=== PATIENT | female | born 1990 | race Two or more races ===

== ENCOUNTER → 2019-05-14 | Outpatient (CLI) | payer OTHER ==
[2014-10-26 13:27] VITALS: BP 149/92
[2019-05-14 17:07] LABS: BASO % 1 % (0-3); EOS # 0.1 x10^3/uL (0.0-0.7); EOS % 2 % (0-3); HEMATOCRIT 38.7 % (36.0-47.0); HEMOGLOBIN 13.6 g/dL (12.0-15.5); LYMPH # 1.8 x10^3/uL (1.0-4.8); LYMPH % 25 % (24-48); MEAN CORPUSCULAR HEMOGLOBIN 31 pg (25-35); MEAN CORPUSCULAR HGB CONC 35 g/dL (31-37); MEAN CORPUSCULAR VOLUME 89 fL (79-100); MONO # 0.4 x10^3/uL (0.0-1.1); MONO % 5 % (0-9); NEUT % 68 % (31-73); PLATELET COUNT 241 x10^3/uL (140-400); RED BLOOD COUNT 4.35 x10^6/uL (3.50-5.40); RED CELL DISTRIBUTION WIDTH 13.9 % (11.5-14.5); WHITE BLOOD COUNT 7.4 x10^3/uL (4.0-11.0)
[2019-05-14 17:08] LABS: BILIRUBIN,URINE NEGATIVE (NEG); CLARITY,URINE CLEAR; COLOR,URINE YELLOW; NITRITE,URINE NEGATIVE (NEG); PH,URINE 6.5; PROTEIN,URINE NEGATIVE (NEG-TRACE); UROBILINOGEN,URINE 0.2 mg/dL (0.2 mg/dL)
--- NOTE | 2019-05-14 17:10 | RAD ---
OB <14 WKS W/TV History: age and growth Comparison: None. Findings: Multiple transabdominal sonographic images of the pelvis are submitted. Uterus measured 11.4 x 4.5 x 5.5 cm. Endometrium measured about 1 cm in thickness. Left ovary measured 2.9 x 4.9 x 3.6 cm there is a hypoechoic lesion left ovary about 2.5 x 1.8 x 2.6 cm. There is normal low resistance vascularity of the left ovary. Right ovary is not seen. Transvaginal ultrasound: Multiple transvaginal sonographic images of the pelvis are submitted. There is a single intrauterine gestational sac with identifiable yolk sac, pole and cardiac activity not visualized on this exam. Mean sac dimension of 0.59 cm corresponds with 5 weeks 2 days. Adjusted ultrasound age 5 weeks 2 days with estimated delivery date 01/12/2020. LMP age 5 weeks 4 days with estimated delivery date of 01/10/2020. There is a hypoechoic lesion left ovary about 2.4 x 1.8 x 1.4 cm. Left ovary measures 4.3 x 2.3 x 3.3 cm with normal low resistance vascularity. Right ovary measures 4.3 x 1.7 x 1.5 cm with normal low resistance vascularity. Impression: 1. There is a single intrauterine gestational sac with visible yolk sac although pole and cardiac activity not seen at this time. Mean sac dimension corresponds with adjusted ultrasound age of 5 weeks 2 days with estimated delivery date of 01/12/2020. Correlation with quantitative beta hCG values and short-term imaging follow-up if needed is recommended. 2. There is left ovarian cyst up to about 2.4 cm. Electronically signed by: Soy Friedman MD (05/14/2019 5:07 PM) [id number]
[2019-05-14 17:17] LABS: BACTERIA,URINE 0 /HPF (0-FEW); RBC,URINE RARE /HPF (0-2); WBC,URINE 0 /HPF (0-4)
== END | disposition home or self-care (01) ==
LOC: US 16:15
PROVIDERS: ATTEND Obstetrics & Gynecology
DX: O34.81 Maternal care for other abnormalities of pelvic organs, first trimester (principal); N83.202 Unspecified ovarian cyst, left side; Z3A.01 Less than 8 weeks gestation of pregnancy
CPT/HCPCS: 36415; 76801; 76817; 81001; 82947; 84436; 84443; 85025; 86592; 86593; 86703; 86762; 86850; 86900; 86901; 87340

== ENCOUNTER → 2019-08-23 | Outpatient (CLI) | payer OTHER ==
[2014-10-26 13:27] VITALS: BP 149/92
--- NOTE | 2019-08-23 16:10 | RAD ---
EXAM: Obstetrics sonogram. HISTORY: Size and dates. TECHNIQUE: Sonographic imaging of the gravid uterus was performed. COMPARISON: 05/14/2019. FINDINGS: There is a single intrauterine fetus in breech presentation with a normal heart rate of 152 bpm. There is a three-vessel umbilical cord with normal insertion. There is normal breathing motion. There is a normal amniotic fluid index of 14.8 cm. There is anterior placenta without evidence of placenta previa. The stomach, kidneys, bladder, spine, brain, heart, facial profile and extremities are unremarkable. The biparietal diameter is 4.6 cm, corresponding with 19 weeks and 6 days. The head circumference is 16.6 cm, corresponding with 20 weeks and 2 days. The abdominal circumference is 14.2 cm, corresponding with 19 weeks and 4 days. The femoral length is 3.1 cm, corresponding with 19 weeks and 5 days. The estimated gestational age patient combined ultrasound measurements is 19 weeks and 4 days and the estimated weight is 301 g. The estimated due date is 01/13/2020. The cervical length is 4.8 cm. The maternal adnexal regions are unremarkable. IMPRESSION: 1. Single intrauterine fetus in breech presentation with normal heart rate and gestational age based on ultrasound measurements of 19 weeks and 4 days. 2. Slightly limited evaluation of the anatomy due to presentation. The anatomy survey is grossly unremarkable. Electronically signed by: Sonia Reece MD (08/23/2019 4:07 PM) [place] [id number]
== END | disposition home or self-care (01) ==
LOC: US 13:53
PROVIDERS: ATTEND Obstetrics & Gynecology
DX: O32.1XX0 Maternal care for breech presentation, not applicable or unspecified (principal); O26.842 Uterine size-date discrepancy, second trimester; Z3A.19 19 weeks gestation of pregnancy
CPT/HCPCS: 76805

== ENCOUNTER → 2019-11-07 | Outpatient (CLI) | payer OTHER ==
[2014-10-26 13:27] VITALS: BP 149/92
== END ==
LOC: LAB 09:16
PROVIDERS: ATTEND Obstetrics & Gynecology
DX: O09.90 Supervision of high risk pregnancy, unspecified, unspecified trimester (principal); Z3A.00 Weeks of gestation of pregnancy not specified
CPT/HCPCS: 36415; 82947; 82950

== ENCOUNTER 2020-01-08 06:03 | Inpatient (IN) | payer OTHER ==
[~2020-01-08] VITALS: Ht 162.6 cm; Wt 105.2 kg
[2020-01-08] MEDS ORDERED: OXYTOCIN 30 UNIT/500 ML PREMIX 500 ML IV PRN ×3 (06:15→19:00)
[2020-01-08] MEDS ORDERED: CITRIC ACID/SODIUM CITRATE 30 ML SOLUTION. PO PRN (06:15)
[2020-01-08] MEDS ORDERED: BUTORPHANOL 2 MG/ML VIAL. IVP PRN (06:15)
[2020-01-08] MEDS ORDERED: ONDANSETRON PF 4 MG/2 ML VIAL. IVP PRN ×2 (06:15→13:30)
[2020-01-08] MEDS ORDERED: ACETAMINOPHEN 325 MG TABLET. PO PRN ×2 (06:15→19:00)
[2020-01-08] MEDS ORDERED: TERBUTALINE 1 MG/ML VIAL. SQ PRN (06:15)
[2020-01-08] MEDS ORDERED: IBUPROFEN 400 MG TABLET. PO PRN (06:15)
[2020-01-08] MEDS ORDERED: fentaNYL PF VIAL 100 MCG/2 ML VIAL IVP PRN (06:15)
[2020-01-08] MEDS ORDERED: 0.9 % SODIUM CHLORIDE 10 ML DISP.SYRIN. IV PRN ×2 (06:15→19:00)
[2020-01-08] MEDS ORDERED: LIDOCAINE 1% PF 30 ML VIAL. INJ PRN (06:15)
[2020-01-08] MEDS: IV RINGERS,LACTATED 1000ML 1,000 ML IV SCH ×2 (06:54→11:14)
[2020-01-08 07:04] VITALS: BP 149/98
[2020-01-08 07:04] LABS: BASO % 1 % (0-3); EOS # 0.1 x10^3/uL (0.0-0.7); EOS % 2 % (0-3); HEMATOCRIT 37.2 % (36.0-47.0); HEMOGLOBIN 12.3 g/dL (12.0-15.5); LYMPH % 31 % (24-48); MEAN CORPUSCULAR HEMOGLOBIN 28 pg (25-35); MEAN CORPUSCULAR HGB CONC 33 g/dL (31-37); MEAN CORPUSCULAR VOLUME 84 fL (79-100); MONO # 0.3 x10^3/uL (0.0-1.1); MONO % 5 % (0-9); NEUT # 4.1 x10^3/uL (1.8-7.7); NEUT % 62 % (31-73); PLATELET COUNT 206 x10^3/uL (140-400); RED BLOOD COUNT 4.44 x10^6/uL (3.50-5.40); RED CELL DISTRIBUTION WIDTH 16.7 % (11.5-14.5); WHITE BLOOD COUNT 6.6 x10^3/uL (4.0-11.0)
[2020-01-08 11:28] LABS: BILIRUBIN,URINE NEGATIVE (NEG); CLARITY,URINE CLEAR; COLOR,URINE YELLOW; NITRITE,URINE NEGATIVE (NEG); PH,URINE 6.5 (<5.0-8.0); PROTEIN,URINE >=300 mg/dL (NEG-TRACE); UROBILINOGEN,URINE 0.2 mg/dL (0.2 mg/dL)
[2020-01-08 11:36] LABS: BACTERIA,URINE FEW /HPF (0-FEW)
[2020-01-08 11:37] LABS: HYALINE CASTS, URINE FEW /HPF; SQUAMOUS EPITHELIAL CELL,UR MANY /LPF
[2020-01-08] MEDS ORDERED: IV RINGERS,LACTATED 1000ML 1,000 ML IV SCH (13:16)
[2020-01-08] MEDS ORDERED: L&D EPIDURAL SYRINGE 50 ML ONE (13:19)
[2020-01-08] MEDS ORDERED: ROPIVacaine 0.2% PF 10 ML VIAL. ONE ×2 (13:19→14:00)
[2020-01-08] MEDS ORDERED: L&D EPIDURAL SYRINGE 50 ML EPID PRN (13:30)
[2020-01-08] MEDS ORDERED: NALOXONE 0.4 MG/ML VIAL. IV PRN (13:30)
[2020-01-08] MEDS ORDERED: ROPIVacaine 0.2% PF 10 ML VIAL. EPID PRN (13:30)
[2020-01-08] MEDS ORDERED: BUPIVACAINE MPF 0.25% 30 ML VIAL. EPID PRN (13:30)
[2020-01-08] MEDS ORDERED: miSOPROStol 200 MCG TABLET ONE (14:00)
[2020-01-08] MEDS ORDERED: L&D EPIDURAL 50 ML SYRINGE. ONE (14:00)
--- NOTE | 2020-01-08 15:55 | PDOC1 ---
OB - History Hx of Present Care: Good Care Ultrasounds: No ultrasounds Obstetrical Complications: None Medical Complications: None Past Family/Social History * Past Medical, Surgical, Family and Obstetric Histories reviewed from chart. Rubella: Immune RPR/VDRL: Negative GBS Status: Negative HBsAG: Negative OB - Chief Complaint & HPI Date of Admission: Date of Admission: January 08, 2020 at 06:03 Chief Complaint/History : 4 Para: 3 EGA: 39 Reason for admission: induction of labor Admission Nurse Assessment Rev: Yes OB - Admission Exam Physical Exam Vitals: VS - Last 72 Hours, by Label Date Time Temp Pulse Resp B/P (MAP) Pulse Ox O2 Delivery O2 Flow Rate FiO2 01/08/20 12:38 20 Room Air 01/08/20 07:04 98.8 122 18 149/98 (115) Room Air 98.8 HEENT: Normal Heart: Regular Rate Lungs: Clear Abdomen: Gravid, Non tender, Soft Extremities: Edema Reflexes: Normal Cervical Dilatation: 3cm Effacement: 75% Station: -3 Membranes: Intact Heart Rate: Normal Accelerations: Accelerations Present Decelerations: No decelerations Contractions on Admission: None Text A: 39 wks IUP IOL secondary discomforts P: Admit IOL pitocin. NELLIE MOJICA Jr, MD January 08, 2020 15:55
--- NOTE | 2020-01-08 18:56 | PDOC ---
VAGINAL DELIVERY DATE DATE: 01/08/20 TIME: 18:55 : 4 Para: 4 EGA: 39 VAGINAL DELIVERY: VTX VACCUM ASSISTED: No PLACENTA: Spontaneous 8/9 SEX: Female WEIGHT Weight [ 9 lbs] Nuchal Cord: No Amniotic Fluid: Clear PAIN: Epidural EPISIOTOMY: No EXTENSION: Yes (2nd degree midline laceration) REPAIRED WITH 2-0 vicryl EBL 400 ml COMPLICATIONS none CONDITION pt. stable Signs of Intrauterine Infectio: None Shoulder Dystocia: No NELLIE MOJICA Jr, MD January 08, 2020 18:56
[2020-01-08] MEDS ORDERED: MMR per PROTOCOL. MC PRN (19:00)
[2020-01-08] MEDS ORDERED: PHENYLEPH/MINERAL OIL/PETROLAT RECTAL OINTMENT TUBE. RC PRN (19:00)
[2020-01-08] MEDS ORDERED: TDaP (Adacel) per PROTOCOL. MC PRN (19:00)
[2020-01-08] MEDS ORDERED: diphenhydrAMINE HCL 25 MG CAPSULE PO PRN (19:00)
[2020-01-08] MEDS ORDERED: MAG HYDROX/ALUMINUM HYD/SIMETH 30 ML ORAL.SUSP PO PRN (19:00)
[2020-01-08] MEDS ORDERED: MAGNESIUM HYDROXIDE 2,400 MG/30 ML ORAL.SUSP. PO PRN (19:00)
[2020-01-08] MEDS ORDERED: SIMETHICONE 80 MG TAB.CHEW PO PRN (19:00)
[2020-01-08] MEDS ORDERED: BENZOCAINE 20% TOPICAL AEROSOL SPRAY 57GM CAN. TP PRN (19:00)
[2020-01-08] MEDS ORDERED: HYDROCORTISONE 1% TOPICAL OINTMENT 30GM TUBE. TP PRN (19:00)
[2020-01-08] MEDS ORDERED: ZOLPIDEM 5 MG TABLET. PO PRN (19:00)
[2020-01-08] MEDS: IBUPROFEN 400 MG TABLET. PO PRN (21:33)
[2020-01-08] MEDS: oxyCODONE/APAP 5/325 1 TAB TABLET PO PRN (22:10)
[2020-01-08 23:14] VITALS: BP 134/87
[2020-01-09] MEDS: oxyCODONE/APAP 5/325 1 TAB TABLET PO PRN ×4 (00:01→19:27)
[2020-01-09] MEDS ORDERED: miSOPROStol 200 MCG TABLET PR ONE (00:10)
[2020-01-09] MEDS ORDERED: miSOPROStol 200 MCG TABLET ONE (00:20)
[2020-01-09 00:30] VITALS: BP 103/52
[2020-01-09 04:19] LABS: HEMOGLOBIN 10.1 g/dL (12.0-15.5)
[2020-01-09 04:38] VITALS: BP 126/80
[2020-01-09 04:56] LABS: BASO % 0 % (0-3); EOS % 0 % (0-3); HEMOGLOBIN 9.8 g/dL (12.0-15.5); LYMPH # 1.4 x10^3/uL (1.0-4.8); LYMPH % 13 % (24-48); MEAN CORPUSCULAR HEMOGLOBIN 28 pg (25-35); MEAN CORPUSCULAR HGB CONC 33 g/dL (31-37); MEAN CORPUSCULAR VOLUME 84 fL (79-100); MONO # 0.4 x10^3/uL (0.0-1.1); MONO % 4 % (0-9); NEUT # 8.9 x10^3/uL (1.8-7.7); NEUT % 83 % (31-73); PLATELET COUNT 177 x10^3/uL (140-400); RED BLOOD COUNT 3.55 x10^6/uL (3.50-5.40); RED CELL DISTRIBUTION WIDTH 16.6 % (11.5-14.5); WHITE BLOOD COUNT 10.7 x10^3/uL (4.0-11.0)
--- NOTE | 2020-01-09 08:04 | PDOC3 ---
OB DISCHARGE SUMMARY DATE OF ADMISSION: 01/08/20 DATE OF DISCHARGE: 01/09/20 REASON FOR ADMISSION: Induction of labor INTRAPARTUM PROCEDURES: Spontanous Vag Deliv DISCHARGE DIAGNOSIS: Term Delivered DISCHARGE INFORMATION: Activity (ad caprice), Diet (regular), Instructions (pelvic rest x 6 wks) HOSPITAL COURSE Term gestation delivered vaginally without difficulty. NELLIE MOJICA Jr, MD January 09, 2020 08:04
[2020-01-09] MEDS ORDERED: IBUP-1027 PO (08:05)
--- NOTE | 2020-01-09 08:06 | DISCH ---
DISCHARGE INSTRUCTIONS Condition on Discharge Condition on Discharge: Stable Activity After Discharge Activity Instructions for Disc: Activity as tolerated Lifting Instructions after Dis: No heavy lifting Driving Instructions after Dis: Do not drive today Diet after Discharge Diet after Discharge: Regular Contacting the [facility] after DC Call your doctor for: Concerns you may have Follow-Up Follow up with: Dr. Pink in 6 wks NELLIE PINK Jr, MD January 09, 2020 08:06
[2020-01-09] MEDS: FERROUS SULFATE 325 MG TABLET. PO SCH ×2 (08:58→18:27)
[2020-01-09] MEDS: DOCUSATE SODIUM 100 MG CAPSULE. PO PRN ×2 (08:58→18:34)
[2020-01-09] MEDS: IBUPROFEN 400 MG TABLET. PO PRN ×2 (08:59→14:20)
[2020-01-09] MEDS ORDERED: MULTIVITAMIN with MINERAL TABLET. PO SCH (09:00)
[2020-01-09 14:25] VITALS: BP 105/71
[2020-01-09 18:31] VITALS: BP 114/77
[2020-01-09 21:15] VITALS: BP 135/88
== END 2020-01-09 21:25 | disposition home or self-care (01) | DRG 807 ==
LOC: 3 SO LND 06:03 → 3 NORTH 22:00
PROVIDERS: ADMIT Obstetrics & Gynecology; ATTEND Obstetrics & Gynecology
PROC: 10E0XZZ Delivery of Products of Conception, External Approach (ICD-10-PCS; principal; 2020-01-08)
PROC: 0KQM0ZZ Repair Perineum Muscle, Open Approach (ICD-10-PCS; 2020-01-08)
PROC: 3E033VJ Introduction of Other Hormone into Peripheral Vein, Percutaneous Approach (ICD-10-PCS; 2020-01-08)
PROC: 3E0R3BZ Introduction of Anesthetic Agent into Spinal Canal, Percutaneous Approach (ICD-10-PCS; 2020-01-08)
PROC: 00HU33Z Insertion of Infusion Device into Spinal Canal, Percutaneous Approach (ICD-10-PCS; 2020-01-08)
DX: O70.1 Second degree perineal laceration during delivery (principal); Z37.0 Single live birth; Z3A.39 39 weeks gestation of pregnancy
CPT/HCPCS: 36415; 81001; 85014; 85018; 85025; 86592; 86762; 86850; 86900; 86901; J2590; J2795; J3010; J7120; G0378